=== PATIENT | female | born 1940 | race Caucasian/White ===

== ENCOUNTER 2019-05-01 19:36 | Inpatient (IN) | payer OTHER ==
[~2019-05-01] VITALS: Ht 165.1 cm; Wt 86.2 kg
[2019-05-01] MEDS ORDERED: MICROZIDE12.5 MG PO (20:06)
[2019-05-01] MEDS ORDERED: TOPROL XL25 M1 PO (20:06)
[2019-05-01] MEDS ORDERED: ZOFRAN4 MG PO (20:07)
--- NOTE | 2019-05-01 20:11 | NUR ---
PTE REFIERE QUE SE JUANIS EN LA PAYAN GOLPEANDOSE LA ROSEMARYILLA KANDACE.
--- NOTE | 2019-05-01 20:49 | NUR ---
SE RECIBE PTE FEMENINA DE 78 YRS ALERTA CONCIENTE Y TRANQUILA EN COMPANIA DE FAMILIAR. PTE ES EVALUADA POR EL PAUL MORILLOO QUIEN ORDENA TRATAMIENTO LA CUAL SE EJECUTA. SE MANTIENE BAJO OBSERVACIO POR CAMBIOS
--- NOTE | 2019-05-02 00:20 | NUR ---
PT ALERTA Y ORIENTADA RE-EVALUDA OR DR AVILA. SE LE ORINETA SOBRE NUEVAS ORDENES MEDICAS. REFIERE ENTEDER. SE LINDSAY MUESTRAS DE [place] Y VENOPUNCION CON TECNICAS ASEPTICAS. SE ADMINISTRAN MEDICAMENTOS ORDENADOS. PT [place]. MS TORRES LE REALIZA INSERCION DE BOWEN CATARIAS CON TECNICAS ASEPTICAS. PT [place].
--- NOTE | 2019-05-02 08:15 | NUR ---
SE RECIBE DE TURNO ANTERIOR. PACIENTE FEMENINA. ALERTA Y ORIENTADA EN YRIS ESFERAS. ACOMPANADA POR FAMILIAR. SE OBSERVA CON BUEN PATRON RESPIRATORIO. PIEL TIBIA AL TACTO. CANALIZACION PATENTE, MAR DE EDEMA Y/O ENROJECIMIENTO RECIBIENDO IV FLUID ORDENADO. SONDA URINARIA A GRAVEDAD PRESENTANDO ORINA AMARILLO INTENSO. PACIENTE EN ESPERA DE CONSULTA CON DR FERREIRA.
[2019-05-04] MEDS ORDERED: ELIQUIS2.5 MG PO (15:47)
[2019-05-04] MEDS ORDERED: DUI500 PO (15:47)
[2019-05-04] MEDS ORDERED: PERCOCET 5-3251 EACH PO (15:47)
== END 2019-05-04 18:34 | DRG 481 ==
LOC: ER 19:36 → SURH 05-02 10:37
PROVIDERS: ADMIT Orthopaedic Surgery
PROC: 0QS806Z Reposition Right Femoral Shaft with Intramedullary Internal Fixation Device, Open Approach (ICD-10-PCS; principal; 2019-05-02 21:45)
PROC: 30233N1 Transfusion of Nonautologous Red Blood Cells into Peripheral Vein, Percutaneous Approach (ICD-10-PCS; 2019-05-04)
DX: S72.451A Displaced supracondylar fracture without intracondylar extension of lower end of right femur, initial encounter for closed fracture (principal); M80.851A Other osteoporosis with current pathological fracture, right femur, initial encounter for fracture; D62 Acute posthemorrhagic anemia; S72.341A Displaced spiral fracture of shaft of right femur, initial encounter for closed fracture; I10 Essential (primary) hypertension; C50.912 Malignant neoplasm of unspecified site of left female breast; Z85.3 Personal history of malignant neoplasm of breast; Z08 Encounter for follow-up examination after completed treatment for malignant neoplasm